=== PATIENT | female | born 1960 | race Two or more races ===

== ENCOUNTER 2017-03-30 07:36 | Emergency (ER) | payer MEDICAID, OTHER ==
[2017-03-30] MEDS ORDERED: NS 1,000 ML IV ONE (08:00)
[2017-03-30] MEDS ORDERED: ACETAMINOPHEN 500 MG TAB PO ONE (08:00)
--- NOTE | 2017-03-30 08:06 | EDPHY ---
H & P Stated Complaint: cough, chest congestion, wheezing, body aches, itchy troat starting 2 [employer] Time Seen by Provider: 03/30/17 07:45 HPI/ROS: CHIEF COMPLAINT: Headache, chills, fever, cough HISTORY OF PRESENT ILLNESS: 57-year-old female presents complaining of a headache, anorexia, body aches, and chills which started 2 days ago. Patient then developed an itchy throat. Last night she reports increasing congestion in her chest associated with a cough. No sputum production. Patient does feel that her cough is quite wheezy. Some shortness of breath. Chest pain when she is coughing. No abdominal pain. No nausea. Patient developed diarrhea yesterday. No blood in the diarrhea. No lightheadedness or dizziness. Denies urinary complaints. No cardiac history or respiratory history. REVIEW OF SYSTEMS: Aside from elements discussed in the HPI, a comprehensive 10-point review of systems was reviewed and is negative. PAST MEDICAL HISTORY: Leismaniasis, bipolar disorder SOCIAL HISTORY: Nonsmoker. VITAL SIGNS Reviewed by me. Tachycardic at 108. Temperature 37.4. GENERAL: Well-developed, well-nourished, slightly diaphoretic. Complaining of feeling warm. HEENT: Atraumatic. Eyes: No icterus, no injection. Mouth: Slightly dry mucous membranes. No erythema or lesions. Neck: supple with no adenopathy. Negative Kernig's. Negative Brudzinski's. LUNGS: Clear to auscultation bilaterally, no wheezes, rhonchi or rales. CARDIAC: Tachycardic rate. No rubs murmurs or gallops. ABDOMEN: Soft, nontender, nondistended, bowel sounds normal. BACK: No CVA tenderness. EXTREMITIES: No trauma. No edema. Range of motion is normal throughout. NEURO: Alert and oriented, grossly nonfocal. SKIN: mildly diaphoretic, warm to the touch, hypopigmentation on the face. PSYCHIATRIC: Normal mentation, no agitation. - Personal History Current Tetanus/Diphtheria Vaccine: Yes Current Tetanus Diphtheria and Acellular Pertussis (TDAP): Yes Tetanus Vaccine Date: < 10 years - Medical/Surgical History Hx Asthma: No Hx Chronic Respiratory Disease: No Hx Diabetes: No Hx Cardiac Disease: No Hx Renal Disease: No Hx Cirrhosis: No Hx Alcoholism: No Hx HIV/AIDS: No Hx Splenectomy or Spleen Trauma: No Other PMH: leishmeniasis - Social History Smoking Status: Never smoked Constitutional: Initial Vital Signs Temperature (C) 37.4 C 03/30/17 07:44 Heart Rate 108 H 03/30/17 07:44 Respiratory Rate 18 03/30/17 07:44 Blood Pressure 125/78 H 03/30/17 07:44 O2 Sat (%) 93 03/30/17 07:44 O2 Delivery Mode Room Air Allergies/Adverse Reactions: No Known Allergies Allergy (Unverified 03/30/17 07:44) Home Medications: Medication Instructions Recorded ADDERALL 15 MG TABLET 03/30/17 Albuterol Hfa Anes Only [Proair 2 puffs IH QID #1 mdi 03/30/17 Hfa Icu (*)] Azithromycin [Zithromax] 250 mg PO DAILY #4 tab 03/30/17 Hydrocodone/APAP 5/325 [[place] 1 tab PO Q6H PRN #10 tab 03/30/17 5/325 (RX)] Ivermectin 03/30/17 Medical Decision Making - Diagnostics EKG Interpretation: 12-LEAD EKG: Please see the full report in [facility]. My interpretation: Sinus rhythm at a rate of 93 Imaging: I viewed and interpreted images myself ED Course/Re-evaluation: 57-year-old female presents to the emergency department with a fever, headache, body aches, anorexia, cough, diarrhea. IV was established in the patient began receiving IV fluids as well as received Tylenol. She is tachycardic and febrile on arrival Patient received a albuterol nebulizer treatment. Reports improvement in her air flow. Continues to complain of sensation of chest fullness and tightness. EKG demonstrates normal sinus rhythm, troponin is negative. Chest x-ray demonstrates bibasilar atelectasis. No clear infiltrate noted. Plan to discharge the patient on a meter dose inhaler, single dose of prednisone given in the emergency department, instructions regarding symptomatic control, and azithromycin. Sepsis Evaluation The patient presents to the ED with respiratory infection identified as an acute infection. The patient did meet criteria for sepsis with low white count and elevated heart rate, however, she does not meet criteria for severe sepsis. Differential Diagnosis: Differential diagnosis for the patient's patient's symptom complex was considered including but not limited to viral versus bacterial bronchitis, influenza, asthma, COPD, pulmonary emboli, upper respiratory infection, lower respiratory infection, and bronchospasm. - Data Points Laboratory Results: Laboratory Results 03/30/17 08:15 03/30/17 08:15 Microbiology Results: MICROBIOLOGY 03/30/17 08:15 Blood Blood Culture - Preliminary 03/30/17 08:15 Blood Blood Culture - Preliminary Medications Given: Discontinued Medications Acetaminophen (Tylenol) 1,000 mg PO EDNOW ONE Stop: 03/30/17 08:01 Last Admin: 03/30/17 08:18 Dose: 1,000 mg Albuterol (Proventil Neb) 3 ml IH EDNOW ONE Stop: 03/30/17 08:47 Last Admin: 03/30/17 08:57 Dose: 3 ml Azithromycin (Zithromax) 500 mg PO EDNOW ONE PRN Reason: Protocol Stop: 03/30/17 09:14 Last Admin: 03/30/17 09:25 Dose: 500 mg Sodium Chloride (Ns) 1,000 mls @ 0 mls/hr IV ONCE ONE PRN Reason: Wide Open Stop: 03/30/17 08:01 Last Admin: 03/30/17 08:31 Dose: 1,000 mls Ketorolac Tromethamine (Toradol) 15 mg IVP EDNOW ONE Stop: 03/30/17 09:12 Last Admin: 03/30/17 09:24 Dose: 15 mg Prednisone (Prednisone) 60 mg PO EDNOW ONE Stop: 03/30/17 09:31 Last Admin: 03/30/17 09:35 Dose: 60 mg Departure - Departure Disposition: Home, Routine, Self-Care Clinical Impression: Acute bronchitis, Viral syndrome, Fever Condition: Good Instructions: Fever in Adults (ED), Acute Bronchitis (ED), How to Use a Nebulizer (ED), Viral Syndrome (ED) Additional Instructions: Please use the metered dose inhaler to help control your coughing and wheezing and shortness of breath. You been given a prescription of azithromycin. Please begin taking this as directed. Please drink plenty of fluids and get plenty of rest. Use Tylenol or ibuprofen to control your fever. An [id number] antihistamine will also help control any nasal discharge. Seek care urgently or follow up at the emergency department if you develop a worsening symptoms despite the above treatment, severe shortness of breath, chest pain, vomiting, or other concerns. Okay to use hydrocodone if needed for more severe pain. I recommend Ibuprofen (Motrin, Advil) or Naproxen Sodium (Aleve) for pain and anti-inflammatory effects. You may take either one, but do not take both. Your dose is: Ibuprofen 600 mg every 6-8 hours with food. OR Naproxen Sodium (Aleve) 220 mg every 12 hours. Referrals: ABHI NEGRON [Other] - As per Instructions Prescriptions: Albuterol Hfa Anes Only [Proair Hfa Icu (*)] 2 puffs IH QID #1 mdi Azithromycin [Zithromax] 250 mg PO DAILY #4 tab Hydrocodone/APAP 5/325 [[place] 5/325 (RX)] 1 tab PO Q6H PRN #10 tab PRN Reason: Pain
--- NOTE | 2017-03-30 08:08 | CPEKG ---
Heart Rate: 93 RR Interval: 645 P-R Interval: 136 QRSD Interval: 76 QT Interval: 348 QTC Interval: 433 P [place]: 8 QRS [place]: 47 T Wave [place]: 47 EKG Severity - NORMAL ECG - EKG Impression: SINUS RHYTHM Electronically Signed By: Jean-Paul Leonard 03-Apr-2017 12:07:41
[2017-03-30] MEDS ORDERED: ALBUTEROL 3 ML DEYVIAL IH ONE (08:46)
[2017-03-30 08:48] LABS: ANION GAP 11 mEq/L (8-16); CALCIUM 8.7 mg/dL (8.5-10.4); CARBON DIOXIDE 27 mEq/l (22-31); CHLORIDE 97 mEq/L (97-110); CREATININE 0.6 mg/dL (0.6-1.0); GLOMERULAR FILTRATION RATE > 60; GLUCOSE 87 mg/dL (70-100); POTASSIUM 3.7 mEq/L (3.5-5.2); SODIUM 135 mEq/L (134-144)
[2017-03-30 08:52] LABS: COLOR YELLOW; LEUKOCYTE ESTERASE,URINE NEGATIVE (NEGATIVE); NITRITE,URINE NEGATIVE (NEGATIVE); PH,URINE 6.5 (5.0-7.5)
[2017-03-30 09:02] LABS: ADD DIFF? NO; ADD MORPH? NO; ADD SCAN? NO; ATYPICAL LYMPHOCYTE FLAG 10 (0-99); FRAGMENT RBC FLAG 0 (0-99); HEMATOCRIT 34.9 % (38.0-47.0); HEMOGLOBIN 12.1 g/dL (12.6-16.3); LEFT SHIFT FLG 0 (0-99); LIPEMIA HEMOLYSIS FLAG 90 (0-99); MEAN CELL HEMOGLOBIN 29.6 pg (27.9-34.1); MEAN CELL HEMOGLOBIN CONCENTR. 34.7 g/dL (32.4-36.7); MEAN CELL VOLUME 85.3 fL (81.5-99.8); MEAN PLATELET VOLUME 12.4 fL (8.7-11.7); PLATELET CLUMPS FLAG 10 (0-99); PLATELET COUNT 157 10^3/uL (150-400); RED BLOOD CELL COUNT 4.09 10^6/uL (4.18-5.33); RED CELL DISTRIBUTION WIDTH 13.3 % (11.5-15.2)
[2017-03-30 09:11] LABS: INR 1.02 (0.83-1.16); PROTIME(PATIENT) 13.1 SEC (12.0-15.0)
[2017-03-30] MEDS ORDERED: KETOROLAC 30 MG/1 ML SDV IVP ONE (09:11)
[2017-03-30 09:12] LABS: APTT 29.9 SEC (23.0-38.0)
[2017-03-30] MEDS ORDERED: AZITHROMYCIN 250 MG TAB PO ONE (09:13)
[2017-03-30] MEDS ORDERED: predniSONE 20 MG TAB PO ONE (09:30)
[2017-03-30 09:42] VITALS: O2SAT 95
[2017-03-30 10:10] VITALS: BP 122/67; PULSE 91; RESP 18; TEMP 97.9
== END 2017-03-30 10:21 | disposition home or self-care (01) ==
LOC: CED 07:36
DX: J20.9 Acute bronchitis, unspecified (principal); B34.9 Viral infection, unspecified
CPT/HCPCS: 71020-PO; 80048-PO; 81003-PO; 82247-PO; 83605-PO; 84484-PO; 85025-PO; 85610-PO; 85730-PO; 87400-PO; 96374; J1885